=== PATIENT | female | born 1975 | race Caucasian/White ===

== ENCOUNTER → 2020-07-10 | Outpatient (CLI) | payer OTHER ==
[~2020-07-10] VITALS: Ht 162.6 cm; Wt 69.9 kg
[~2020-07-10] MED LIST: ALAVERT10 M1 PO; AMITRIPTYLINE H10 M1 PO; ASA81BEC PO; CORTEF 20 MG TA20 MG PO; CRYSELLE1 EACH PO; DEXILANT60 MG PO; FENTANYL1 EAC2 TOP; FERRETTS18 MG PO; FISH OIL 1,0001 EAC9 PO; FLONASE 0.05%50 MCG NARES; FLORINEF ACETA0.1 MG PO; FOLIXAPURE5000 UNIT PO; HYDRALAZINE 2525 MG PO; INSULIN PUMP; KAPSPARGO SPRIN25 MG PO; KLOR-CON M2020 MEQ PO; LIPITOR40 MG PO; LYRICA225 MG PO; MAGNESIUM 300300 MG PO; MIRALAX119 GM PO; MUCINEX1200 MG PO; NORCO 7.5-3251 EACH PO; NOVOLOG100 UNIT/M SUBQ; PRISTIQ ER25 MG PO; PRISTIQ100 MG PO; PROBIOTIC1 EAC7 PO; RAYOS5 MG PO; SELENIUM SULFI120 M1 TOP; SINGULAIR 10 MG10 M1 PO; SYNTHROID175 MCG PO; VITAMIN B-121000 MC2 SUBLING; VITAMIN C125 MG PO; VITAMIN E400 UNI4 PO; XANAX 0.25 MG0.25 MG PO; ZANAFLEX4 M1 PO; ZINC ACETATE PO; [UNRECOGNIZED DRUG - SUPPLY] SUBQ
[2020-07-10 10:36] VITALS: BP 171/100
--- NOTE | 2020-07-25 13:25 | HPC ---
[facility] [address] [place] [address] PAIN MANAGEMENT CONSULTATION Name: CLAUDIO POLLOCK Room #: REG FERNANDO Jackson.#: [id number] Admission: 07/10/20 Attend Phys: Bobby Adams MD Discharge: Date of : 75 Report #: [id number] THIS REPORT FOR: cc: Dung Tipton MD, Todd MD Brown,Bobby Milligan MD ~ CC: Bobby Tipton MD DATE OF SERVICE: 07/10/2020 CHIEF COMPLAINT: Back and hip pain. HISTORY: The patient is a 44-year-old female who has been referred to the pain clinic for evaluation of low back pain. The patient states that she has had sciatica in both hips. Pain is worse when she is sitting, getting up and down. Notes that stretching and walking can sometimes be helpful. Describes her discomfort as constant, steady, periodic, shooting, cramping, aching, and sharp. Rates her pain as a 9/10 at this point. The patient states that she has had fibromyalgia for about 20 years. Back pain has been problematic for about 20 years. She states that she fell in the past. She has had an old compression fracture. The sciatic nerve pain that she has been experiencing sometimes waxes and wanes. She has not had an injection. She has had physical therapy. Has some problems with variations in her blood pressure. Has used a wheelchair. Has some complaints of neuropathy in her hands and feet. She does have diabetes. She has had problems with Thomaston's disease and osteoporosis. Has used an insulin pump. ALLERGIES: DAIRY, BUCKWHEAT, CABBAGE, AND NUMEROUS OTHER FOOD ALLERGIES, SEE CHART. ALLERGIES: 1. COMPAZINE IN 1998, LOCKED JAW AND STIFFENING OF NECK. 2. DOXYCYCLINE, BREATHING DIFFICULTIES. 3. GABAPENTIN IN 2016. 4. LISINOPRIL/HYDROCHLOROTHIAZIDE, VERTIGO. 5. METOCLOPRAMIDE, RASH. 6. ZITHROMAX, BREATHING. CURRENT MEDICATIONS: Amitriptyline 10 mg, Lipitor 40 mg, Cryselle, Dexcom diabetes, Dexilant acid reflux, fentanyl patch 37.5 mcg q. 72 hours, fludrocortisone 0.1 mg (Thomaston's disease, hydrochlorothiazide 25 mg, hydrocodone 7.5 mg every 4-6 hours p.r.n., hydrocortisone 25 mg Thomaston's disease, Lyrica 450 mg, metoprolol 6.25 mg, montelukast 10 mg, NovoLog insulin, potassium 20 mEq, prednisone 2.5/5 mg alternating days for Thomaston's disease, [address] [address] PAIN MANAGEMENT CONSULTATION Name: CLAUDIO POLLOCK Room #: REG FERNANDO M.R.#: [id number] Admission: 07/10/20 Attend Phys: Bobby Adams MD Discharge: Date of : 75 Report #: [id number] Pristiq 150 mg, Synthroid 175 mcg, tandem insulin pump, tizanidine 4 mg q. 4 hours, and Zanaflex 0.25 mg. Evas-eau-eqbwizh medications are listed 22 medications, see the list. PAST MEDICAL HISTORY: 1. Thomaston's disease in 2006. 2. Cataract surgery, left eye 2017. 3. Celiac disease. 4. Dairy intolerance. 5. Diabetes with use of insulin. 6. Fibromyalgia in 2007. 7. Food allergies. 8. Hypertension. 9. Hypothyroidism. 10. Iron infusions in 2019. 11. Mineral deficiencies in 2015. 12. Neuropathy in 2019. 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 REVIEW OF SYSTEMS: Fatigue and weakness, eye disease, blurred vision, glaucoma/cataracts, chronic sinus problems, shortness of breath, palpitations, constipation, change in hair and nails, numbness and tingling, nervousness, depression, thyroid disease, diabetes, hot and cold intolerance, slow to heal, bleeding, or easy bruising. LABORATORY DATA: The patient has provided a wealth of x-ray views of the pelvis, lumbar spine, mammograms, and bone density. PAIN CLINIC ASSESSMENT/PQRS: 1. The patient does have some osteoarthritic changes. She is not being followed for rheumatoid arthritis. 2. Height 5 feet 2 inches, weight 154 pounds. 3. Vital Signs: See chart. 4. Pain intensity 08/08. 5. Fall history: The patient has fallen in the past. 6. Blood thinner. The patient is not on a blood thinning medication. 7. Hypertension. The patient is being treated for blood pressure. 8. Opioids. The patient is using fentanyl patches to help control the pain. 9. Risk assessment tool, moderate for opioid use. 10. Functional assessment tool, reviewed. 11. Recreational drug use. The patient denies. 12. Tobacco: The patient does not smoke. 13. Alcohol. The patient denies frequent use of alcoholic beverages. [facility] [address] [address] PAIN MANAGEMENT CONSULTATION Name: CLAUDIO POLLOCK Room #: REG FERNANDO Fuentes#: [id number] Admission: 07/10/20 Attend Phys: Bobby Adams MD Discharge: Date of : 75 Report #: [id number] PHYSICAL EXAMINATION: GENERAL: The patient is a white female. Has facies and body habitus consistent with steroid use. MUSCULOSKELETAL: The patient complains of pain in the low back area. Has pain and sciatic complaints in the hips. RECOMMENDATIONS: We reviewed the patient's information. We explained that given her significantly complex history, I am not sure that we have anything significant to offer. She does have diabetes. She is on steroid medications. We generally do epidural steroid injections as well as medications. I am not sure that any regimen that we would prescribe at this juncture would afford much more benefit than that what she is on. We would like to thank you for letting us participate in her care. We hope she continues to improve as time goes on. <ELECTRONICALLY SIGNED> By: Bobby Adams MD 07/25/20 1325 [id number] Bobby Adams MD /[facility]
== END ==
LOC: PAIN 06:55
PROVIDERS: ATTEND Anesthesiology Pain Medicine
DX: M54.9 Dorsalgia, unspecified (principal); M25.552 Pain in left hip; M25.551 Pain in right hip; Z88.8 Allergy status to other drugs, medicaments and biological substances; Z79.899 Other long term (current) drug therapy